=== PATIENT | male | born 1955 | race Caucasian/White ===

== ENCOUNTER 2017-10-16 05:05 | Emergency (ER) | payer MEDICARE, OTHER | END 2017-10-16 05:45 | disposition home or self-care (01) | LOC: FTE 05:05 | DX: R04.0 Epistaxis (principal); F17.210 Nicotine dependence, cigarettes, uncomplicated; Z79.01 Long term (current) use of anticoagulants; Z79.82 Long term (current) use of aspirin; Z98.61 Coronary angioplasty status | CPT/HCPCS: 99283 ==

== ENCOUNTER 2017-10-17 05:35 | Emergency (ER) | payer MEDICARE, OTHER | END 2017-10-17 06:30 | disposition home or self-care (01) | LOC: FTE 05:35 | DX: R04.0 Epistaxis (principal); F17.210 Nicotine dependence, cigarettes, uncomplicated; Z09 Encounter for follow-up examination after completed treatment for conditions other than malignant neoplasm; Z79.82 Long term (current) use of aspirin; Z98.61 Coronary angioplasty status | CPT/HCPCS: 99283 ==

== ENCOUNTER 2017-11-15 07:18 | Day surgery (SDC) | payer MEDICARE, OTHER ==
[2017-11-15] MEDS: DIAZEPAM 5 MG TAB PO (06:00)
[2017-11-15] MEDS: SOD CHLORIDE 0.45% 1,000 ML IV (06:00)
[~2017-11-15 07:18] MED LIST: DIPHENHYDRAMINE 50 MG CAP PO; FAMOTIDINE 20 MG TAB PO
[2017-11-15 08:21] LABS: ADD MAN DIFF? NO
[2017-11-15 08:28] LABS: BASOPHIL # 0.1 10^3/ul (0.0-0.1); BASOPHILS % 1.1 % (0.0-2.0); EOSINOPHILS # 0.3 10^3/ul (0.0-0.5); EOSINOPHILS % 4.4 % (0.0-7.0); HEMATOCRIT 38.1 % (42.0-52.0); LYMPHOCYTES # 1.8 10^3/ul (0.8-2.9); MEAN CORPUSCULAR HEMOGLOBIN 28.6 pg (29.0-33.0); MEAN CORPUSCULAR HGB CONC 31.5 g/dl (32.0-37.0); MEAN CORPUSCULAR VOLUME 90.9 fl (82.0-101.0); MEAN PLATELET VOLUME 9.5 fl (7.4-10.4); MONOCYTE # 0.4 10^3/ul (0.3-0.9); MONOCYTES % 6.7 % (0.0-11.0); NEUTROPHIL # 3.7 10^3/ul (1.6-7.5); NEUTROPHILS % 58.6 % (39.0-77.0); PLATELET COUNT 185 10^3/UL (140-415); RED BLOOD COUNT 4.19 10^6/ul (4.70-6.10)
[2017-11-15 08:28] LABS: WHITE BLOOD COUNT 6.3 10^3/ul (4.8-10.8)
[2017-11-15 08:43] LABS: ANION GAP 12 (8-16); BLOOD UREA NITROGEN 10 mg/dl (7-20); CALCIUM 9.3 mg/dl (8.4-10.2); CARBON DIOXIDE 29 mmol/L (21-31); CHLORIDE 108 mmol/L (97-110); CHOLESTEROL 156 mg/dl (100-200); CREATININE 0.73 mg/dl (0.61-1.24); GLUCOSE 104 mg/dl (70-220); HDL CHOLESTEROL 39 mg/dl (30-78); LDL CHOLESTEROL,CALCULATED 98 mg/dl; POTASSIUM 4.5 mmol/L (3.5-5.1); SODIUM 144 mmol/L (135-144); TRIGLYCERIDES 97 mg/dl (0-149)
[2017-11-15 08:45] LABS: INR 0.88; PT RATIO 0.9
[2017-11-15 08:46] LABS: PARTIAL THROMBOPLASTIN TIME 31.9 Sec (23.0-35.0)
[2017-11-15] MEDS ORDERED: LIDOCAINE 1% (MDV) 20 ML INJ ×2 (08:47→09:05)
[2017-11-15] MEDS ORDERED: IODIXANOL LOCM 100 ML BTL ×2 (08:47→09:05)
[2017-11-15] MEDS ORDERED: SOD CHLORIDE 0.9% 500 ML (09:05)
[2017-11-15] MEDS ORDERED: FENTAnyl 50 MCG/ML VIAL (09:05)
[2017-11-15] MEDS ORDERED: VERAPAMIL 5 MG INJ (09:06)
[2017-11-15] MEDS ORDERED: NITROGLYCERIN (IC) 100 MCG/ML INJ (09:06)
[2017-11-15] MEDS ORDERED: MIDAZOLAM 1 MG/ML 2 ML INJ (09:06)
[2017-11-15] MEDS ORDERED: ADENOSINE 30 ML (10:21)
[2017-11-15] MEDS: SOD CHLORIDE 0.9% 1,000 ML IV (11:07)
[2017-11-15] MEDS ORDERED: morphine 2 MG INJ IV (11:30)
[2017-11-15] MEDS ORDERED: AL HYDROX/MG HYDROX/SIMETH 30 ML CUP PO (11:30)
[2017-11-15] MEDS ORDERED: ACETAMINOPHEN 325 MG TAB PO (11:30)
[2017-11-15] MEDS ORDERED: ONDANSETRON 4 MG INJ IV (11:30)
== END 2017-11-15 17:52 | disposition home or self-care (01) ==
LOC: SDS 07:18
DX: I11.0 Hypertensive heart disease with heart failure (principal); I50.31 Acute diastolic (congestive) heart failure; E78.00 Pure hypercholesterolemia, unspecified; I73.9 Peripheral vascular disease, unspecified
CPT/HCPCS: 71045; 80048; 80061; 85025; 85610; 85730; 93005; 93458